=== PATIENT | male | born 1950 | race Caucasian/White ===

== ENCOUNTER 2016-07-29 16:22 | Emergency (ER) | payer OTHER ==
[2016-07-29 16:33] VITALS: BP 119/74; PULSE 61; RESP 16; TEMP 98.1; O2SAT 97
--- NOTE | 2016-07-29 16:37 | EDPHY ---
H & P Stated Complaint: Pt. states with mid abd pain that radiates to llq since Tuesday,denies feve Time Seen by Provider: 07/29/16 16:38 HPI/ROS: CHIEF COMPLAINT: Abdominal pain HISTORY OF PRESENT ILLNESS: This patient is a 65-year-old male with history of diverticulitis who presents to the Emergency Department complaining of acute onset LLQ abdominal pain presenting on Tuesday morning. He reports some improvement to his pain yesterday but experienced worsening pain and generalized malaise since waking up this morning. He reports mild constipation beginning Tuesday but did have a normal BM yesterday. No blood in his stool. He denies fever or chills, nausea or vomiting, or urinary complaints. Last episode of diverticulitis 5-6 years ago; his last abdominal CT was four years ago. Medical history also includes abdominal aortic aneurysm for which he has annual ultrasounds for monitoring; there have been no recent changes to this. REVIEW OF SYSTEMS: A ten point review of systems was performed and is negative with the exception of the items mentioned in the HPI. Source: Patient - Medical/Surgical History PMH: 1. Diverticulitis 2. Aortic aneurysm, 3.1mm 3. Atrial septum defect repaired in 2002 4. Hypercholesteremia 5. Chronic peripheral neuropathy, non-diabetic 6. Colonoscopies with polyp removal 7. Inguinal hernia with resection Hx Asthma: No Hx Chronic Respiratory Disease: No Hx Diabetes: No Hx Cardiac Disease: No Hx Renal Disease: No Hx Cirrhosis: No Hx Alcoholism: No Hx HIV/AIDS: No Hx Splenectomy or Spleen Trauma: No Other PMH: MEd hx-1. cholesterol 2.GERD 3.allergies-sinus. aortic aneurysm 3.1mm(2014) SURG-open heart -(2002)ASD - Social History Smoking Status: Never smoked Alcohol Use: Sober Additional Social History: Visiting from [place], arrived on Tuesday. Non-smoker. No alcohol use. - Physical Exam Exam: General Appearance: Alert. Vital signs reviewed. Eyes: Pupils equal and round, no conjunctival injection, no discharge. Anicteric. ENT, Mouth: Mucous membranes are moist, no oropharyngeal erythema or edema. Neck: No lymphadenopathy, supple. Respiratory: Lungs are clear to auscultation; no wheezes, rales, or rhonchi. Cardiovascular: Regular rate and rhythm; no murmur, rub, or gallop. Gastrointestinal: Abdomen is soft, LLQ tenderness without guarding, no pulsatile mass or organomegaly, bowel sounds normal. Skin: Warm and dry, no rashes on exposed skin, normal color. Back: Nontender to palpation over the thoracolumbar spine. No CVAT. Extremities: No lower extremity edema, no calf tenderness or swelling. Neurological: Alert and oriented. Moving all four extremities easily and equally. Psychiatric: Normal affect. Constitutional: Initial Vital Signs Temperature (C) 36.7 C 07/29/16 16:27 Heart Rate 61 07/29/16 16:27 Respiratory Rate 16 07/29/16 16:27 Blood Pressure 119/74 07/29/16 16:27 O2 Sat (%) 97 07/29/16 16:27 O2 Delivery Mode Room Air Allergies/Adverse Reactions: No Known Allergies Allergy (Verified 07/29/16 16:25) Home Medications: Medication Instructions Recorded Amoxicillin/Clavulanate Pot 875 mg PO BID #14 tab 07/29/16 [Augmentin 875 MG TAB (*)] Aspirin 81mg (*) 07/29/16 Atorvastatin Calcium 07/29/16 Flonase Nasal [place] 07/29/16 Nifedipine 07/29/16 Pantoprazole Sodium 07/29/16 Medical Decision Making ED Course/Re-evaluation: This 65-year-old male with history of diverticulitis and abdominal aortic aneurysm presents with complaint of LLQ abdominal pain without fever, urinary complaints, nausea, vomiting, or diarrhea. He has LLQ tenderness on exam but no other findings. No periumbilical abdominal tenderness or pulsatile mass. It is likely that the patient is experiencing a recurrence of his diverticulitis. I recommended that we proceed with antibiotic treatment for suspected diverticulitis but also offered the opportunity to proceed with further imaging. He declines further imaging at this time. He understands customary return precautions. He will be started on a course of Augmentin and discharged home in good condition. Differential Diagnosis: I considered a differential diagnosis that includes but is not limited to diverticulitis, viscus perforation, aortic dissection, enlargement of aortic aneurysm, ureterolithiasis, and hernia. Departure - Departure Disposition: Home, Routine, Self-Care Clinical Impression: Diverticulitis Qualifiers: Diverticulitis site: large intestine Diverticulitis bleeding: without bleeding Diverticulitis complication: without perforation or abscess Qualified Code(s): K57.32 - Diverticulitis of large intestine without perforation or abscess without bleeding Condition: Good Instructions: Diverticulitis (ED), Diverticulitis Diet (ED) Additional Instructions: 1. Take the full course of antibiotics as prescribed. 2. Eat foods appropriate for your diverticulitis diet as outlined in the attached packet. 3. Return to the Emergency Department immediately if you experience any significant changes to your symptoms, including: fever or chills, nausea or vomiting, diarrhea, blood in vomit or stool, centralized abdominal pain radiating through to your back, or for other serious concerns. 4. Follow-up with your primary care provider for reevaluation when you return home to [place]. If you need to follow-up with a PCP while in [facility], we have referred you to our on-call provider, Dr. Blair. Referrals: Mally Blair MD [Medical Doctor] - As per Instructions Prescriptions: Amoxicillin/Clavulanate Pot [Augmentin 875 MG TAB (*)] 875 mg PO BID #14 tab Report Scribed for: Coco Hearn Report Scribed by: Jazmyne Geller Date of Report: 07/29/16 Time of Report: 16:38 Physician Review and Approval Statement: 07/29/16 16:36 Portions of this note were transcribed by the director medical safety. I, Dr. Coco Hearn, personally performed the history, physical exam, and medical decision- making; and confirmed the accuracy of the information in the transcribed note.
== END 2016-07-29 17:18 | disposition home or self-care (01) ==
LOC: CED 16:22
DX: K57.32 Diverticulitis of large intestine without perforation or abscess without bleeding (principal); Z79.82 Long term (current) use of aspirin